=== PATIENT | male | born 1945 | race Caucasian/White ===

== ENCOUNTER 2017-03-07 13:57 | Observation (INO) | payer MEDICARE ==
[2017-03-07 14:33] LABS: BASOPHILS 0.3 % (0-2); EOSINOPHILS 1.5 % (0-7); HEMOGLOBIN 18.5 g/dL (13.5-17.5); IMMATURE GRANULOCYTES 0.2 % (0-5); LYMPHOCYTES 7.3 % (15-50); MCHC 35.6 g/dL (31.0-37.0); MCV 92.7 fL (80.0-100.0); MEAN PLATELET VOLUME 9.9 fL (7.4-10.4); MONOCYTES 10.3 % (2-11); NEUTROPHILS 80.4 % (40-80); PLATELET COUNT 170 10x3/uL (130-400); RBC 5.61 10x6/uL (4.20-6.10); RDW 12.2 % (11.5-14.5); WBC 16.9 10x3/uL (4.8-10.8)
[2017-03-07 14:50] LABS: ALBUMIN 4.8 g/dL (3.4-5.0); ANION GAP 10.4 mmol/L (8-16); BILIRUBIN - TOTAL 1.94 mg/dL (0.2-1.3); CALCIUM 9.8 mg/dL (8.5-10.1); CARBON DIOXIDE 28.2 mmol/L (21.0-32.0); CREATININE - SERUM 1.2 mg/dL (0.6-1.3); POTASSIUM - SERUM 3.6 mmol/L (3.5-5.1); PROTEIN - SERUM 8.4 g/dL (6.4-8.2)
[2017-03-07 15:20] LABS: CREATINE KINASE 344 UL (21-232); MAGNESIUM - SERUM 2.2 mg/dL (1.8-2.4)
[2017-03-07 15:25] LABS: APPEARANCE CLEAR (CLEAR); BILIRUBIN NEGATIVE (NEGATIVE); COLOR YELLOW (YELLOW); GLUCOSE NEGATIVE (NEGATIVE); KETONE NEGATIVE (NEGATIVE); NITRITE NEGATIVE (NEGATIVE); PROTEIN 1+ mg/dL (NEGATIVE); UROBILINOGEN NORMAL (NORMAL)
[2017-03-07 15:27] LABS: BACTERIA FEW /hpf (NONE SEEN); WHITE CELLS - URINE OCC /hpf (0-5)
[2017-03-07 15:30] LABS: TROPONIN-I 0.212 ng/mL (0.000-0.060)
[2017-03-07 15:31] LABS: CKMB 4.6 U/L (0.0-3.6)
--- NOTE | 2017-03-07 17:30 | NUR ---
RECEIVED PT VIA W/C AAOX4 RESP UNLABORED DENIES ANY NEEDS OR DISCOMFORT NAD NOTED AT THIS TIME
[2017-03-07] MEDS ORDERED: LISINOPRIL5 MG PO (17:52)
[2017-03-07] MEDS ORDERED: HUMULIN R100 U/ML SQ (17:54)
[2017-03-07] MEDS ORDERED: TESTOSTERON200 MG/ML IM (17:56)
[2017-03-07] MEDS ORDERED: ANASTROZOLE1 MG PO (17:57)
[2017-03-07 18:37] VITALS: BMI 25.1
--- NOTE | 2017-03-07 19:55 | NUR ---
UPON INITIAL ASSESSMENT, PT STATES THAT HE WANTS TO GO HOME. HE STATES HE SPOKE WITH THE DOCTOR AND THAT HE WANTS TO DO RESEARCH AND POSSIBLY COME BACK AT A LATER DATE. EXPLAINED TO PT THE RISKS, INCLUDING POSSIBLE HEART ATTACK OR . ALSO EXPLAINED TO PT THAT INSURANCE MAY NOT COVER HIS VISIT. PT VERBALIZES STILL WANTING TO LEAVE. CALL TO DR MENDOZA AT THIS TIME.
--- NOTE | 2017-03-07 20:02 | NUR ---
SPOKE WITH DR PAUL PT WANTING TO LEAVE. EXPLAINED TO DR PAUL THAT I SPOKE WITH PT IN GREAT DETAIL THE RISKS INVOLVED. DR PAUL STATES PT WILL BE LEAVING AMA AND TO HAVE HIM SIGN THE AMA FORM AND LET THE PT GO HOME PER PT WISHES.
--- NOTE | 2017-03-07 20:15 | NUR ---
PT SIGNS INFORMED AMA FORM. IV REMOVED WITH CATH TIP INTACT. DRESSING APPLIED. TELEMETRY REMOVED. PT WITH FAMILY MEMBERS X2. ALL BELONGINGS HOME WITH PT. PT LEAVES UNIT AMBULATORY TO PERSONAL AUTO WITH FAMILY MEMBERS.
== END 2017-03-07 20:15 | disposition left against medical advice (07) ==
LOC: D.ER 13:57 → D.M2 16:23 → OBSVTIME 16:23 → D.M2 20:15
PROVIDERS: Emergency Medicine; ADMIT Family Medicine
DX: R55 Syncope and collapse (principal); R79.89 Other specified abnormal findings of blood chemistry; E11.9 Type 2 diabetes mellitus without complications; I10 Essential (primary) hypertension; Z87.891 Personal history of nicotine dependence

== ENCOUNTER 2017-03-12 12:22 | Inpatient (IN) | payer MEDICARE ==
--- NOTE | ~2017-03-12 | HEMODYNAMI ---
PATIENT:SHANTA COLLADO MEDICAL RECORD: [id number] : 45 [facility] [id number] ADMISSION DATE: 03/12/17 Generatedon:03/13/201711:15 Patient name: SHANTA COLLADO Patient #: [id number] SSN: : 1945 Date of study: 03/13/2017 Page: Of Hemodynamic Procedure Report Patient Data Patient Demographics Procedure consent was obtained First Name: SHANTA Gender: Male Last Name: TOBIAS : 1945 [facility] Initial: GAYLE Age: 71 year(s) Patient #: [id number] Race: Unknown Additional ID: [id number] Contact details Address: [address] [place] [address] State: [place] City: [place] Zip code: [address] Past Medical History Allergies: No known allergies Admission Admission Data Admission Date: 03/12/2017 Admission Time: 14:40 Room #: .2117 Height (in.): 70.87 BSA: 1.98 (m2) Height (cm.): 180 BMI: 24.07 (kg/m2) Weight (lbs.): 171.96 Weight (kg.): 78 Lab Results Lab Result Date: 03/13/2017 Lab Result Time: 0:00 Biochemistry Name Units Result Min Max BUN mg/dl 6 -*(----)-- 7 18 Creatinine mg/dl 1.1 --(--*-)-- 0.6 1.3 Troponin l ng/ml 0.219 --(----)-* 0 0.06 CBC Name Units Result Min Max Hemoglobin g/dl 15.8 --(--*-)-- 13.5 17.5 Procedure Procedure Types Cath Procedure Diagnostic Procedure [facility] w/Coronaries Miscellaneous Procedures Moderate Sedation up to 15 minutes Procedure Description Procedure Date Procedure Date: 03/13/2017 Procedure Start Time: 10:55 Procedure End Time: 11:15 Procedure Staff Name Function Srinivas Donato MD Performing Physician Holly Frost RT Scrub Livier Woodall RT Monitor Bartolo Crooks RT Monitor Gutierrez Curiel RN Nurse Procedure Data Cath Procedure Fluoroscopy Diagnostic fluoroscopy Total fluoroscopy Time: 3.3 time: 3.3 min min Diagnostic fluoroscopy Total fluoroscopy dose: 384 dose: 384 mGy mGy Contrast Material Contrast Material Type Amount (ml) Isovue 300 34 Entry Location Entry Primary Successful Side Size Upsize Upsize Entry Closure Succes sful Closure Location (Fr) 1 (Fr) 2 (Fr) Remarks Device Remarks Femoral Right 5 Fr artery Femoral Exoseal artery Estimated blood loss: 10 ml Diagnostic catheters Device Type Used For End Catheter Placement Cordis 5Fr JL 4.0 Procedure Catheter (MP) Cordis 5Fr 3DRC Catheter Procedure (MP) Cordis 5Fr Pigtail Procedure Catheter (MP) Procedure Complications No complications Procedure Medications Medication Administration Route Dosage Oxygen NC 2 l/min Heparin Flush Bag added to field 2 bags (1000units/500ml NS) 0.9% NaCl I.V. 100 ml/hr Radial Cocktail added to field 1 syringe (Verapomil 2mg/Nitro 400mcg/Heparin 1500units) Fentanyl I.V. 50 mcg Versed I.V. 2 mg Hemodynamics Rest BSA: 1.98 (m2) HGB: 15.8 (g/dl) O2 Consumption: Estimated: 216.27 (ml/min) O2 Co nsumption indexed: Estimated:109.23 (ml/min/m) Heart Rate: 53 (bpm) Pressure Samples Time Site Value (mmHg) Purpose Heart Use Rate(bpm) 11:06 LV 142/-2,11 EDP 51 11:07 AO 142/53(83) Pullback 52 11:07 LV 143/8,19 Pullback 52 Gradients Valve Time Site 1 Site 2 Mean SEP/DFP Peak To Heart Use (mmHg) (sec/min) Peak Rate (mmHg) (bpm) Aortic 11:07 LV AO 22 15 1 52 143/8,19 142/53(83) Calculations Valve P-P Mean Valve Index Valve Source Name Gradient Area Flow (cm2) Aortic 1 22 1 22 Snapshots Pre Cath Intra NCS Post Cath Vital Signs Time Heart Resp SPO2 etCO2 HL2kavg NIBP (mmHg) Rhythm Pain Sedation Rate (ipm) (%) (mmHg) (mmHg) Status Level (bpm) 10:46:36 54 19 97 0 0 161/86(140) NSR 0 (11) 10(A) , No pain 10:51:57 52 18 98 0 0 147/76(118) NSR 0 (11) 10(A) , No pain 10:57:11 53 17 100 0 0 139/76(110) NSR 0 (11) 9(A) , No pain 11:01:57 52 18 100 0 0 140/75(112) NSR 0 (11) 9(A) , No pain 11:06:42 52 18 100 0 0 148/74(117) NSR 0 (11) 9(A) , No pain 11:11:57 51 17 100 0 0 148/73(110) NSR 0 (11) 9(A) , No pain Medications Time Medication Route Dose Verified Delivered Reason Notes Eff ectiveness by by 10:49:41 Oxygen NC 2 l/min Srinivas Gutierrez Per Tanmay Curiel RN physician 10:49:56 Heparin Flush added 2 bags Srinivas Gutierrez used for Bag to Tanmay Curiel RN procedure (1000units/500ml field MARIE NS) 10:50:39 0.9% NaCl I.V. 100 Srinivas Gutierrez Per ml/hr Tanmay Curiel RN physician 10:50:52 Radial Cocktail added 1 Srinivas Gutierrez used for (Verapomil to syringe Tanmay Curiel RN procedure 2mg/Nitro field MARIE 400mcg/Heparin 1500units) 10:52:25 Fentanyl I.V. 50 mcg Srinivas Gutierrez for Tanmay Curiel RN sedation 10:52:34 Versed I.V. 2 mg Srinivas Gutierrez for Tanmay Curiel RN sedation Procedure Log Time Note 10:17:33 Gutierrez Curiel RN sent for patient. Start room use. 10:31:07 Patient Height : 70.87 inches 10:31:18 Patient Weight : 171.96 lbs 10:31:57 Lab Result : Hemoglobin 15.8 g/dl 10:31:57 Lab Result : Troponin l 0.219 ng/ml 10:31:57 Lab Result : BUN 6 mg/dl 10:31:57 Lab Result : Creatinine 1.1 mg/dl 10:32:04 Procedure type changed to Cath procedure, Diagnostic procedure, LHC, LHC w/Coronaries, Miscellaneous Procedures, Moderate Sedation up to 15 minutes 10:37:44 Time tracking: Regular hours 10:37:49 Plan of Care:Hemodynamics will remain stable., Cardiac rhythm will remain stable., Comfort level will be maintained., Respiratory function will remain adequate., Patient/ family verbilizes understanding of procedure., Procedure tolerated without complication., Recovers from procedure without complications.. 10:39:53 Patient received from Med II to CCL 1 Alert and oriented. Tansferred to table in Supine position. 10:39:58 Warm blankets applied, and renée hugger turned on for patient comfort. 10:39:59 Correct patient and procedure confirmed by team. 10:40:01 Signed procedure consent form obtained from patient. 10:40:02 ECG and BP/O2 sat monitors applied to patient. 10:45:02 Vital chart was started 10:45:10 Baseline sample Acquired. 10:45:48 Rhythm: sinus rhythm 10:45:50 Full Disclosure recording started 10:46:13 H&P Date Dictated: 03/12/2017 Greater than 30 days; new H&P dictated by physician. Or brief H&P completed., Emergent; H&P N/A, Within 30 days and on chart., H&P Addendum completed by physician on day of procedure. (MUST COMPLETE FOR ALL OUTPATIENTS), ER History on chart., New H&P dictated by physician.. 10:46:14 Pre-procedure instructions explained to patient. 10:46:16 Pre-op teaching completed and patient verbalized understanding. 10:46:19 Family in waiting room. 10:46:21 Patient NPO since Midnight. 10:46:33 Patient allergic to No known allergies 10:46:37 Is the patient allergic to Iodine/contrast media? No. 10:46:47 Is patient on blood thinner?Yes 10:47:07 ACC The patient was administered the following blood thiners within the last 24 hours: ACCPlavix 10:47:49 Patient diabetic? Yes. 10:47:51 If diabetic: On Metformin? No 10:47:58 Snore? Yes 10:48:01 Previous problem with sedation/anesthesia? No ? 10:48:05 Sleep apnea? No 10:48:07 Deviated septum? No 10:48:08 Opens mouth fully? Yes 10:48:09 Sticks out tongue? Yes 10:48:12 Airway obstruction? No ? 10:48:16 Dentures? No ? 10:48:54 Pre procedure: right dorsailis pedis pulse 2+ Normal; easily identifiable; not easily obliterated 10:49:15 Patient pain scale 1/10 ?. 10:49:26 IV patent on arrival in left forearm with 0.9% NaCl at O. 10:49:41 Oxygen 2 l/min NC was administered by Gutierrez Curiel RN; Per physician; 10:49:41 Lab results completed and on chart. 10:49:56 Heparin Flush Bag (1000units/500ml NS) 2 bags added to field was administered by Gutierrez Curiel RN; used for procedure; 10:50:04 Right groin area was prepped with chlora-prep and draped in sterile fashion 10:50:13 Alarms reviewed by R. N. 10:50:15 Sharps counted by scrub and verified by R.N. 10:50:39 0.9% NaCl 100 ml/hr I.V. was administered by Gutierrez Curiel RN; Per physician; 10:50:52 Radial Cocktail (Verapomil 2mg/Nitro 400mcg/Heparin 1500units) 1 syringe added to field was administered by Gutierrez Curiel RN; used for procedure; 10:50:58 Physician arrived 10:51:40 --------ALL STOP TIME OUT------ 10:51:41 Final Timeout: patient, procedure, and site verified with staff and physician. All members of the team are in agreement. 10:51:44 Right groin site verified by team. 10:51:49 Physical assessment completed. ASA score P 2 - A patient with mild systemic disease as per Srinivas Donato MD. 10:51:53 Sedation plan: IV Moderate Sedation Versed, Fentanyl 10:52:25 Fentanyl 50 mcg I.V. was administered by Gutierrez Curiel RN; for sedation; 10:52:33 Use device set Femoral Dx 10:52:34 Versed 2 mg I.V. was administered by Gutierrez Curiel RN; for sedation; 10:52:36 Tegaderm 4 x 4 opened to sterile field. 10:52:37 Acist Syringe opened to sterile field. 10:52:38 Bag Decanter opened to sterile field. 10:52:40 Medline Cath Pack opened to sterile field. 10:52:45 Acist Hand Control opened to sterile field. 10:52:45 Acist Manifold opened to sterile field. 10:52:48 Terumo 5Fr [place] Sheath opened to sterile field. 10:52:49 St Tom 260cm J .035 wire opened to sterile field. 10:52:51 Diagnostic Infinity 5Fr Multipack catheter opened to sterile field. 10:54:58 Procedure started. 10:55:14 Local anesthetic to right femoral artery with Lidocaine 2% by Srinivas Donato MD.INITIAL ACCESS ONLY 10:57:28 Zero performed for pressure channel P1 10:57:53 A 5 Fr sheath was inserted into the Right Femoral artery 10:59:48 A Cordis 5Fr JL 4.0 Catheter (MP) was advanced over the wire and used for Procedure. 11:02:09 LCA angiography performed. 11:02:16 Catheter removed. 11:02:53 A Cordis 5Fr 3DRC Catheter (MP) was advanced over the wire and used for Procedure. 11:03:47 RCA angiography performed. 11:04:39 Catheter exchanged over wire. 11:04:46 A Cordis 5Fr Pigtail Catheter (MP) was advanced over the wire and used for Procedure. 11:08:03 LV gram done using HUANG 11:08:16 EF : 45 % 11:08:32 Catheter removed. 11:09:21 A sheath was inserted into the Femoral artery 11:09:21 Sheath removed intact; hemostasis achieved with Exoseal to the Femoral artery. 11:09:45 Procedure ended.(Physican Out) 11:10:06 Fluoroscopy time 03.30 minutes. 11:10:12 Fluoroscopy dose: 384 mGy 11:10:12 Flurop Dose total: 384 11:10:37 Contrast amount:Isovue 300 34ml. 11:10:38 Sharps counted by scrub and verified by R.N. 11:10:41 Insertion/operative site no bleeding no hematoma. 11:10:49 Post-op/insertion site Left Femoral artery dressed using a 4 x 4 and Tegaderm. 11:10:57 Post Procedure Pulses reassessed and unchanged 11:11:04 Post procedure: right dorsailis pedis pulse 2+ Normal; easily identifiable; not easily obliterated. 11:11:08 Post-procedure physical assessment completed. ASA score P 2 - A patient with mild systemic disease as per Srinivas Donato MD. 11:11:13 Post procedure rhythm: unchanged. 11:11:16 Estimated blood loss: 10 ml 11:11:18 Post procedure instruction explained to patient.Patient verbalizes understanding. 11:11:18 Patient needs reinforcement of post procedure teaching. 11:13:07 Cook 4Fr Micropuncture Set ([id number]) opened to sterile field. 11:13:12 Cordis 5Fr Exoseal opened to sterile field. 11:13:59 Procedure and supply charges have been captured, reviewed, submitted and are correct. 11:14:06 Procedure Complication : No complications 11:14:51 Vital chart was stopped 11:14:52 See physician's report for complete and final results. 11:14:56 Report given to Med II. 11:14:59 Patient transfered to Med II with Stretcher. 11:15:02 Procedure ended. 11:15:02 Full Disclosure recording stopped 11:15:23 End room use (Document Last) Device Usage Item Name Manufacture Quantity Catalog Hospital Part Current Minimal Lot# / Number Charge Number Stock Stock Serial# Code Tegaderm 4 x 3M 1 [id number] [id number] 728318 700848 5 4 Acist Syringe Acist 1 26373 430742 667136 027849 20 [employer] Bag Decanter Microtek 1 2002S 058558 67059 444968 5 [employer] Inc[employer] Medline Cath Cardinal 1 [id number] 830350 24281 348761 5 Pack Health Acist Hand Acist 1 65549 357209 173610 100000 5 Control [employer] Inc Acist Acist 1 69987 719122 719599 322736 5 Manifold [employer] Inc Terumo 5Fr Terumo 1 [id number] 764922 321205 910290 [address] [place] [address] Tom [address] St Tom 1 517201 942568 097158 943342 30 J .035 wire Diagnostic Cardinal 1 [id number] 196873 59103 612645 30 Infinity 5Fr Health Multipack catheter Cordis 5Fr JL Cardinal 1 [id number] 5 4.0 Catheter Health (MP) Cordis 5Fr Cardinal 1 [id number] 5 3DRC Catheter Health (MP) Cordis 5Fr Cardinal 1 [id number] 5 Pigtail Health Catheter (MP) Cook 4Fr [facility] 1 [id number] 165103 787059 785306 5 Micropuncture Set ([id number]) Cordis 5Fr Cardinal 1 EX500 513842 233444 648586 10 Exoseal Health Signature Audit [place] Stage Time Signature Unsigned Intra-Procedure 03/13/2017 Livier Woodall 11:15:52 AM RT(R) Signatures Monitor : Livier Woodall Signature : RT Date : Time : Monitor : Bartolo Crooks RT Signature : Date : Time : [address] [address]
--- NOTE | ~2017-03-12 | HEMODYNAMI ---
PATIENT:SHANTA COLLADO MEDICAL RECORD: [id number] : 45 [facility] [id number] ADMISSION DATE: 03/13/17 Generatedon:03/14/201713:48 Patient name: SHANTA COLLADO Patient #: [id number] SSN: : 1945 Date of study: 03/14/2017 Page: Of Hemodynamic Procedure Report Patient Data Patient Demographics Procedure consent was obtained First Name: SHANTA Gender: Male Last Name: TOBIAS : 1945 [facility] Initial: GAYLE Age: 71 year(s) Patient #: [id number] Race: Unknown Additional ID: [id number] Contact details Address: [address] [place] [address] State: [place] City: [place] Zip code: [address] Past Medical History Allergies: No known allergies Admission Admission Data Admission Date: 03/13/2017 Admission Time: 14:58 Room #: D.2117 Height (in.): 70.87 BSA: 1.98 (m2) Height (cm.): 180 BMI: 24.07 (kg/m2) Weight (lbs.): 171.96 Weight (kg.): 78 Lab Results Lab Result Date: 03/13/2017 Lab Result Time: 0:00 Biochemistry Name Units Result Min Max BUN mg/dl 6 -*(----)-- 7 18 Creatinine mg/dl 1.1 --(--*-)-- 0.6 1.3 Troponin l ng/ml 0.219 --(----)-* 0 0.06 CBC Name Units Result Min Max Hemoglobin g/dl 15.8 --(--*-)-- 13.5 17.5 Procedure Procedure Types Cath Procedure PCI Procedure Coronary Stent Initial Procedure Description Procedure Date Procedure Date: 03/14/2017 Procedure Start Time: 13:35 Procedure End Time: 13:48 Procedure Staff Name Function Dagoberto Long MD Performing Physician Jarret Saleem RT Scrub Gutierrez Curiel RN Nurse Bella Fung RT Monitor Rakan Linton RT Monitor Procedure Data Cath Procedure Fluoroscopy Diagnostic fluoroscopy Total fluoroscopy Time: 1.8 time: 1.8 min min Diagnostic fluoroscopy Total fluoroscopy dose: 244 dose: 244 mGy mGy Contrast Material Contrast Material Type Amount (ml) Isovue 300 42 Entry Location Entry Primary Successful Side Size Upsize Upsize Entry Closure Ochoa ccessful Closure Location (Fr) 1 (Fr) 2 (Fr) Remarks Device Remarks Radial Right 6 Fr Mechanical artery Short Compression Estimated blood loss: 10 ml Procedure Medications Medication Administration Route Dosage Oxygen NC 2 l/min Heparin Flush Bag added to field 2 bags (1000units/500ml NS) 0.9% NaCl I.V. 100 ml/hr Radial Cocktail added to field 1 syringe (Verapomil 2mg/Nitro 400mcg/Heparin 1500units) Fentanyl I.V. 50 mcg Versed I.V. 1 mg Fentanyl I.V. 50 mcg Versed I.V. 1 mg Radial Cocktail I.A. 1 syringe (Verapomil 2mg/Nitro 400mcg/Heparin 1500units) Heparin Bolus I.V. 4000 units Fentanyl I.V. 50 mcg Hemodynamics Rest BSA: 1.98 (m2) HGB: 15.8 (g/dl) O2 Consumption: Estimated: 217.09 (ml/min) O2 Co nsumption indexed: Estimated:109.64 (ml/min/m) Heart Rate: 54 (bpm) Snapshots Pre Cath Intra NCS Post Cath Vital Signs Time Heart Resp SPO2 NIBP (mmHg) Rhythm Pain Sedation Rate (ipm) (%) Status Level (bpm) 13:16:37 54 17 99 154/82(140) NSR 0 (11) 10(A) , No pain 13:20:57 53 17 96 152/82(126) NSR 0 (11) 10(A) , No pain 13:25:17 49 16 98 144/80(120) NSR 0 (11) 10(A) , No pain 13:29:34 48 19 98 148/81(125) NSR 0 (11) 10(A) , No pain 13:33:45 50 18 98 151/81(120) NSR 0 (11) 10(A) , No pain 13:38:04 60 18 97 112/61(84) NSR 0 (11) 9(A) , No pain 13:42:11 65 18 94 118/66(91) NSR 0 (11) 9(A) , No pain 13:44:57 53 18 95 123/65(83) NSR 0 (11) 9(A) , No pain Medications Time Medication Route Dose Verified Delivered Reason Note s Effectiveness by by 13:20:14 Oxygen NC 2 l/min Dagoberto Whitley Per physician Mercedes Curiel RN 13:20:23 Heparin Flush added 2 bags Dagoberto Whitley used for Bag to Mercedes Curiel RN procedure (1000units/500ml field NS) 13:20:34 0.9% NaCl I.V. 100 Dagoberto Whitley Per physician ml/hr Mercedes Curiel RN 13:20:46 Radial Cocktail added 1 Dagoberto Whitley used for (Verapomil to syringe Mercedes Curiel RN procedure 2mg/Nitro field 400mcg/Heparin 1500units) 13:34:56 Fentanyl I.V. 50 mcg Dagoberto Whitley for sedation Mercedes Curiel RN 13:35:05 Versed I.V. 1 mg Dagoberto Whitley for sedation Mercedes Curiel RN 13:36:02 Fentanyl I.V. 50 mcg Dagoberto Whitley for sedation Mercedes Curiel RN 13:36:08 Versed I.V. 1 mg Dagoberto Whitley for sedation Mercedes Curiel RN 13:36:57 Radial Cocktail I.A. 1 Dagoberto Arenas for (Verapomil syringe Mercedes Long MD vasodilation 2mg/Nitro 400mcg/Heparin 1500units) 13:37:07 Heparin Bolus I.V. 4000 Dagoberto Whitley for units Mercedes Curiel RN anticoagulation 13:40:31 Fentanyl I.V. 50 mcg Dagoberto Whitley for sedation Mercedes Curiel RN Procedure Log Time Note 12:12:05 Time tracking: Regular hours 12:12:09 Plan of Care:Hemodynamics will remain stable., Cardiac rhythm will remain stable., Comfort level will be maintained., Respiratory function will remain adequate., Patient/ family verbilizes understanding of procedure., Procedure tolerated without complication., Recovers from procedure without complications.. 12:12:15 Use device set Femoral PCI 12:12:16 Acist Syringe opened to sterile field. 12:12:17 Acist Hand Control opened to sterile field. 12:12:17 Bag Decanter opened to sterile field. 12:12:18 Medline Cath Pack opened to sterile field. 12:12:18 Terumo 6Fr [place] Sheath opened to sterile field. 12:12:18 St Tom 260cm J .035 wire opened to sterile field. 12:12:19 Acist Manifold opened to sterile field. 12:12:20 Tegaderm 4 x 4 opened to sterile field. 12:56:14 Gutierrez Curiel RN sent for patient. Start room use. 13:12:45 Patient received from PCU to CCL 2 Alert and oriented. Tansferred to table in Supine position. 13:12:48 Warm blankets applied, and renée hugger turned on for patient comfort. 13:12:50 Correct patient and procedure confirmed by team. 13:12:53 Signed procedure consent form obtained from patient. 13:13:44 ECG and BP/O2 sat monitors applied to patient. 13:13:45 Vital chart was started 13:13:47 Baseline sample Acquired. 13:14:23 Baseline sample Acquired. 13:14:48 RBBB 13:14:48 Rhythm: sinus rhythm 13:14:51 Full Disclosure recording started 13:15:10 H&P Date Dictated: 03/12/2017 Within 30 days and on chart.. 13:15:16 Family unavailable. 13:15:22 Patient NPO since Breakfast. 13:15:33 Patient allergic to No known allergies 13:15:43 Is the patient allergic to Iodine/contrast media? No. 13:15:46 Is patient on blood thinner?Yes 13:15:50 ACC The patient was administered the following blood thiners within the last 24 hours: ACCPlavix 13:16:03 Patient diabetic? Yes. 13:16:23 If diabetic: On Metformin? No 13:16:38 INSULIN DEPENDANT 13:16:43 ----Pre-sedation anethsthesia assessment.---- 13:16:54 Previous problem with sedation/anesthesia? No ? 13:16:57 Snore? Yes 13:16:59 Sleep apnea? No 13:17:01 Deviated septum? No 13:17:02 Opens mouth fully? Yes 13:17:04 Sticks out tongue? Yes 13:17:06 Airway obstruction? No ? 13:17:17 Modified Ruben's test Ulnar < 7 seconds 13:20:14 Oxygen 2 l/min NC was administered by Gutierrez Curiel RN; Per physician; 13:20:23 Heparin Flush Bag (1000units/500ml NS) 2 bags added to field was administered by Gutierrez Curiel RN; used for procedure; 13:20:34 0.9% NaCl 100 ml/hr I.V. was administered by Gutierrez Curiel RN; Per physician; 13:20:46 Radial Cocktail (Verapomil 2mg/Nitro 400mcg/Heparin 1500units) 1 syringe added to field was administered by Gutierrez Curiel RN; used for procedure; 13:22:03 Patient pain scale 0/10 ?. 13:22:22 IV patent on arrival in left wrist with 0.9% NaCl at [facility]. 13:23:16 Lab results completed and on chart. 13:23:29 Right Radial & Left Groin area was prepped with chlora-prep and draped in sterile fashion 13:23:31 Alarms reviewed by R. N. 13:23:32 Sharps counted by scrub and verified by R.N. 13:32:17 MBrace Wrist Support opened to sterile field. 13:32:51 Medtronic Launcher 6Fr AR 2.0 SH guide catheter opened to sterile field. 13:32:53 Chi Whisper J 300cm 0.014 guide wire opened to sterile field. 13:32:54 addwish BasixCompak Inflation Kit opened to sterile field. 13:34:23 Physician arrived 13:34:23 --------ALL STOP TIME OUT------ 13:34:24 Final Timeout: patient, procedure, and site verified with staff and physician. All members of the team are in agreement. 13:34:27 Right Radial & Left Groin site verified by team. 13:34:30 Physical assessment completed. ASA score P 2 - A patient with mild systemic disease as per Dagoberto Long MD. 13:34:34 Sedation plan: IV Moderate Sedation Versed, Fentanyl 13:34:56 Fentanyl 50 mcg I.V. was administered by Gutierrez Curiel RN; for sedation; 13:35:04 Procedure started. 13:35:05 Versed 1 mg I.V. was administered by Gutierrez Curiel RN; for sedation; 13:35:31 Bella Fung RT(R) was relieved by Rakan Linton RT(R) (CV) as monitoring person 13:35:42 Local anesthetic to right radial artery with Lidocaine 2% by Dagoberto Long MD.INITIAL ACCESS ONLY 13:36:02 Fentanyl 50 mcg I.V. was administered by Gutierrez Curiel RN; for sedation; 13:36:08 Versed 1 mg I.V. was administered by Gutierrez Curiel RN; for sedation; 13:36:28 A 6 Fr Short sheath was inserted into the Right Radial artery 13:36:49 PCI Cath status Elective 13:36:57 Radial Cocktail (Verapomil 2mg/Nitro 400mcg/Heparin 1500units) 1 syringe I.A. was administered by Dagoberto Long MD; for vasodilation; 13:37:02 6 Fr AR 2 SH guide catheter was inserted over the wire 13:37:07 Heparin Bolus 4000 units I.V. was administered by Gutierrez Curiel RN; for anticoagulation; 13:37:46 Zero performed for pressure channel P1 13:37:50 Zero performed for pressure channel P1 13:37:52 Zero performed for pressure channel P1 13:40:31 Fentanyl 50 mcg I.V. was administered by Gutierrez Curiel RN; for sedation; 13:40:31 WHISPER wire advanced. 13:41:00 Wire advanced across lesion. 13:41:30 Inflation Number: 1 A Mauricio OTW 2.5 x 15 stent was prepped and advanced across the Prox RCA. The stent was deployed at 17 JEAN CARLOS for 0:10 (min:sec). 13:41:35 Stent catheter was removed intact over wire. 13:41:37 Wire removed. 13:41:37 Guide catheter removed. 13:41:50 Terumo TR Band Standard opened to sterile field. 13:43:54 Sheath removed intact; hemostasis achieved with Mechanical Compression to the Right Radial artery. 13:43:58 Procedure ended.(Physican Out) 13:44:15 Fluoroscopy time 01.80 minutes. 13:44:21 Flurop Dose total: 244 13:44:21 Fluoroscopy dose: 244 mGy 13:44:33 Contrast amount:Isovue 300 42ml. 13:44:34 Sharps counted by scrub and verified by R.N. 13:44:48 TR band inflated with 10cc of air. 13:44:50 Insertion/operative site no bleeding no hematoma. 13:45:07 Post right radial artery:stable 13:45:17 Post-procedure physical assessment completed. ASA score P 2 - A patient with mild systemic disease as per Dagoberto Long MD. 13:46:40 Post procedure rhythm: unchanged. 13:47:45 Estimated blood loss: 10 ml 13:47:47 Post procedure instruction explained to patient.Patient verbalizes understanding. 13:47:50 Patient needs reinforcement of post procedure teaching. 13:47:51 Procedure and supply charges have been captured, reviewed, submitted and are correct. 13:47:53 Vital chart was stopped 13:47:55 See physician's report for complete and final results. 13:47:57 Report given to PCU. 13:48:01 Patient transfered to PCU with Bed. 13:48:03 Procedure ended. 13:48:03 Full Disclosure recording stopped 13:48:10 End room use (Document Last) Intervention Summary Intervention Notes Time ActionType Lesion and Equipment Action# Pressure Duration Attributes Used 13:41:30 Place stent Prox RCA [place] OTW 1 17 00:10 2.5 x 15 stent Device Usage Item Name Manufacture Quantity Catalog Hospital Part Current Minimal Lot# / Number Charge Number Stock Stock Serial# Code Acist Acist 1 19744 [id number] 648590 461575 20 Syringe Medical Systems Inc Acist Hand Acist 1 11540 529131 032902 139990 5 Control Medical Systems Inc Bag Microtek 1 2002S 358107 74756 514889 5 Cheggin Inc. Medline Cardinal 1 [id number] 386225 64096 656209 5 Veggie Grill Terumo 6Fr Terumo 1 [id number] 202055 076599 959680 [address] [place] Tom 1 161516 629494 638357 606072 30 260cm J .035 wire Acist Acist 1 09834 719617 909498 820537 5 Manifold Medical Systems Inc Tegaderm 4 3M 1 1626W 181031 693943 390119 5 x 4 MBrace Advanced 1 140-0250-00 421205 36738 964948 5 Wrist Vascular Support Dynamics Medtronic Medtronic 1 [id number] 865030 19328 166733 1 Launcher 6Fr AR 2.0 SH guide catheter Chi Chi 1 [id number] 989796 170154 913733 5 Valerieisdebbi J Vascular 300cm 0.014 guide wire [facility] 1 [id number] 595197 258685 715771 15 [facility] Medical Inflation Kit Mauricio OTW Medtronic 1 [id number] 050963 50038 780473 5 [id number] 2.5 x 15 stent Terumo TR Terumo 1 [id number] 155529 764147 907944 40 Band Standard Signature Audit [place] Stage Time Signature Unsigned Intra-Procedure 03/14/2017 Rakan Linton 1:48:51 PM RT(R) (CV) Signatures Monitor : Bella Signature : Counts RT Date : Time : Monitor : Rakan Linton RT Signature : Date : Time : [place] [address] [place] [address]
[~2017-03-12 12:22] MED LIST: ANASTROZOLE1 MG PO; HUMULIN R100 U/ML SQ; LISINOPRIL5 MG PO; TESTOSTERON200 MG/ML IM
[2017-03-12 13:03] LABS: EOSINOPHILS 3.7 % (0-7); HEMATOCRIT 44.7 % (42.0-54.0); HEMOGLOBIN 15.8 g/dL (13.5-17.5); IMMATURE GRANULOCYTES 0.2 % (0-5); LYMPHOCYTES 22.7 % (15-50); MCH 32.4 pg (26.0-34.0); MCHC 35.3 g/dL (31.0-37.0); MCV 91.6 fL (80.0-100.0); MEAN PLATELET VOLUME 9.4 fL (7.4-10.4); MONOCYTES 14.1 % (2-11); NEUTROPHILS 58.3 % (40-80); PLATELET COUNT 156 10x3/uL (130-400); RBC 4.88 10x6/uL (4.20-6.10); WBC 5.7 10x3/uL (4.8-10.8)
[2017-03-12 13:23] LABS: ALKALINE PHOSPHATASE 69 U/L (46-116); ALT (SGPT) 42 U/L (10-68); BILIRUBIN - TOTAL 1.01 mg/dL (0.2-1.3); CALC OSMOLALITY 265 mosm/kg (275-300); CALCIUM 9.2 mg/dL (8.5-10.1); CARBON DIOXIDE 28.3 mmol/L (21.0-32.0); CHLORIDE - SERUM 99 mmol/L (98-107); CREATININE - SERUM 1.1 mg/dL (0.6-1.3); GLUCOSE 101 mg/dL (74-106); POTASSIUM - SERUM 3.7 mmol/L (3.5-5.1); SODIUM 134 mmol/L (136-145); UREA NITROGEN 6 mg/dL (7-18); eGFR NON AFRICAN AMERICAN 70 mL/min (90-120)
[2017-03-12 13:38] LABS: CHOLESTEROL, TOTAL 160 mg/dL (0-200); CKMB 4.6 U/L (0.0-3.6); CREATINE KINASE 378 UL (21-232); HDL CHOLESTEROL 40 mg/dL (32-96); LDL CHOLESTEROL 109 mg/dL (0-100); LDL-HDL RATIO 2.7 ratio (1.5-3.5); TRIGLYCERIDE 57 mg/dL (30-200)
[2017-03-12 13:46] LABS: TROPONIN-I 0.162 ng/mL (0.000-0.060)
--- NOTE | 2017-03-12 16:20 | NUR ---
TRANSFER FROM ER BY W/C. MKINTED TO ROOM. CALL LIGHT IN REACH. WILL CONT. PLAN OF CARE.
[2017-03-12 16:29] VITALS: BP 145/69; BMI 24.0
--- NOTE | 2017-03-12 17:14 | NUR ---
CONSENTS SIGNED FOR [facility].
--- NOTE | 2017-03-12 19:36 | NUR ---
ASSESSMENT COMPLETE, A&O. RESPERATIONS EVEN ON RA. IV TO LEFT HAND WITH NS AT 50 CC/HR. SITE CLEAN AND DRY. REMINDED PT OF NOTHING TO EAT OR DRINK AFTER MN DUE TO PT HAVING HEART CATH IN AM. PT STATED UNDERSTANDING. SNACK PROVIDED AT PT REQUEST. WILL CONT TO MONITOR.
[2017-03-12 20:00] VITALS: BP 129/62
--- NOTE | 2017-03-12 20:59 | NUR ---
CUP OF CHICKEN NOODLE SOUP GIVEN AT PT REQUEST.
--- NOTE | 2017-03-12 23:58 | NUR ---
RESTING WITH EYES CLOSED, RESPERATIONS EVEN, NO S/S DISTRESS NOTED
--- NOTE | 2017-03-13 01:57 | NUR ---
LYING IN BED WITH EYES CLOSED, CALL LIGHT IN REACH. WILL CONTINUE WITH PLAN OF CARE.
[2017-03-13 04:00] VITALS: BP 119/59
[2017-03-13 07:10] LABS: BASOPHILS 0.8 % (0-2); EOSINOPHILS 10.8 % (0-7); HEMATOCRIT 43.5 % (42.0-54.0); HEMOGLOBIN 14.9 g/dL (13.5-17.5); IMMATURE GRANULOCYTES 0.4 % (0-5); LYMPHOCYTES 27.6 % (15-50); MCHC 34.3 g/dL (31.0-37.0); MCV 93.3 fL (80.0-100.0); MONOCYTES 14.6 % (2-11); NEUTROPHILS 45.8 % (40-80); PLATELET COUNT 165 10x3/uL (130-400); RBC 4.66 10x6/uL (4.20-6.10); RDW 12.2 % (11.5-14.5); WBC 5.2 10x3/uL (4.8-10.8)
[2017-03-13 07:17] LABS: ANION GAP 11.2 mmol/L (8-16); CALCIUM 8.8 mg/dL (8.5-10.1); CREATININE - SERUM 1.1 mg/dL (0.6-1.3); POTASSIUM - SERUM 4.2 mmol/L (3.5-5.1)
[2017-03-13 07:42] VITALS: BP 143/59
[2017-03-13 10:11] VITALS: BMI 28.8
--- NOTE | 2017-03-13 10:35 | NUR ---
PRE-OPS GIVEN. TO FLYING INSTRUCTOR BY BED.
--- NOTE | 2017-03-13 11:37 | NUR ---
BACK FROM INSPECTOR RAW QUARTZ. VS WNL. RIGHT GROIN STABLE WITHOUT BLEEDING OR HEMATOMA NOTED. WILL MONITOR.
--- NOTE | 2017-03-13 13:31 | NUR ---
BED REST UP. GROIN STABLE.
[2017-03-13 15:37] VITALS: BP 128/59
--- NOTE | 2017-03-13 19:34 | NUR ---
RESUMED CARE OF PT, LYING IN BED RESPIRATIONS EVEN AND UNLABORED ON ROOM AIR. LEFT HAND SALINE LOCKED. 56 SB ON TELEMETRY. PLAN OF CARE DISCUSSED. CALL LIGHT IN REACH. WILL CONTINUE TO MONITOR. SEE NURSE ASSESSMENT.
[2017-03-13 20:19] VITALS: BP 111/54
--- NOTE | 2017-03-14 03:41 | NUR ---
CALL LIGHT IN REACH, WILL CONTINUE WITH PLAN OF CARE.
[2017-03-14 04:44] VITALS: BP 151/62
--- NOTE | 2017-03-14 05:16 | NUR ---
PT STATES, HE HAS THOUGHT ABOUT HIS OPTIONS TO HAVE A CABG OR TRY STENTING. STATES HE'D LIKE TO TRY FOR THE STENTS WITH DR. RODRIGUEZ. HE HAS LEFT HIMSELF NPO SINCE 0 LAST NIGHT. WILL CONTINUE TO MONITOR.
[2017-03-14 07:10] LABS: PLT FUNCT.(P2Y12) PLAVIX 87 PRU (194-418)
[2017-03-14 08:46] VITALS: BP 127/65
[2017-03-14 09:16] LABS: HEPATITIS C ANTIBODY <0.1 (0.0-0.9)
--- NOTE | 2017-03-14 10:44 | NUR ---
CONSENTS SIGNED FOR [facility] BY DR. RODRIGUEZ.
[2017-03-14 11:03] LABS: BASOPHILS 0.9 % (0-2); EOSINOPHILS 6.7 % (0-7); HEMATOCRIT 45.2 % (42.0-54.0); HEMOGLOBIN 15.5 g/dL (13.5-17.5); IMMATURE GRANULOCYTES 0.2 % (0-5); LYMPHOCYTES 18.1 % (15-50); MCH 32.2 pg (26.0-34.0); MCHC 34.3 g/dL (31.0-37.0); MCV 93.8 fL (80.0-100.0); MEAN PLATELET VOLUME 9.9 fL (7.4-10.4); MONOCYTES 14.7 % (2-11); NEUTROPHILS 59.4 % (40-80); PLATELET COUNT 166 10x3/uL (130-400); RBC 4.82 10x6/uL (4.20-6.10); RDW 12.1 % (11.5-14.5); WBC 5.9 10x3/uL (4.8-10.8)
[2017-03-14 11:12] LABS: CALC OSMOLALITY 279 mosm/kg (275-300); CALCIUM 9.1 mg/dL (8.5-10.1); CARBON DIOXIDE 28.4 mmol/L (21.0-32.0); CHLORIDE - SERUM 103 mmol/L (98-107); GLUCOSE 96 mg/dL (74-106); POTASSIUM - SERUM 3.8 mmol/L (3.5-5.1); SODIUM 140 mmol/L (136-145); eGFR NON AFRICAN AMERICAN 78 mL/min (90-120)
[2017-03-14 11:15] LABS: UREA NITROGEN 15 mg/dL (7-18)
[2017-03-14 12:12] VITALS: BP 134/69
--- NOTE | 2017-03-14 13:00 | NUR ---
PRE-OPS GIVEN. TO RECOVERY MANAGER BY BED.
--- NOTE | 2017-03-14 14:07 | NUR ---
BACK FROM SEWAGE RETICULATION DRAFTING OFFICER. VS WNL. RIGHT WRIST STABLE WITH TR BAND INTACT. WILL MONITOR.
[2017-03-14 15:34] VITALS: BP 97/53
--- NOTE | 2017-03-14 15:58 | NUR ---
Patient Name: SHANTA COLLADO Admission Status: ER Accout number: [id number] Admission Date: 03-13-2017 : 1945 Admission Diagnosis: Attending: MARGOT SHARMA Current LOS: 1 Anticipated DC Date: 03-14-2017 Planned Disposition: Home Primary Insurance: MEDICARE A & B Discharge Planning Comments: * Is the patient Alert and Oriented? Yes 0 * How many steps to enter\exit or inside your home? 3-4 0 * PCP DR. CHRISTIANSON 0 * Pharmacy [facility] 0 * Preadmission Environment Home with Family 0 * ADLs Independent 0 * Equipment None 0 * Other Equipment NO MEDICAL EQUIPMENT PROVIDER PREFERENCE 0 * List name and contact numbers for known caregivers / representatives who currently or will assist patient after discharge: RAUL ANDRADE, SON, [phone] 0 * Community resources currently utilized None 0 * Please name any agencies selected above. NONE 0 * Additional services required to return to the preadmission environment? No * Can the patient safely return to the preadmission environment? Yes 0 * Has this patient been hospitalized within the prior 30 days at any hospital? No 0 CM MET WITH PT IN ROOM TO DISCUSS DISCHARGE PLANNING AND NEEDS. PT REPORTS LIVING AT HOME INDEPENDENTLY WITH HIS . PT HAS NO MEDICAL EQUIPMENT AND NO OUTSIDE SERVICES ASSISTING IN THE HOME. CM DISCUSSED AVAILABILITY OF HOME HEALTH, REHAB SERVICES AND MEDICAL EQUIPMENT. PT DENIES DISCHARGE NEEDS, REPORTS HIS SON WILL PICK HIM UP FOR DISCHARGE HOME. [employer] Crm Developer: Hussain Pimentel
[2017-03-14] MEDS ORDERED: PLAVIX75 MG PO (16:13)
[2017-03-14] MEDS ORDERED: ASPIRIN81 MG PO (16:14)
--- NOTE | 2017-03-14 17:46 | NUR ---
TR BAND DCD WITHOUT BLEEDING OR HEMATOMA NOTED.
--- NOTE | 2017-03-14 18:05 | NUR ---
IV AND TELEMETRY DCD. DC PLANS GIVEN. UNDERSTANDING VOICED.
--- NOTE | 2017-04-04 16:56 | DS ---
PATIENT:SHANTA COLLADO :[birth year] MEDICAL RECORD: [id number] DISCHARGE SUMMARY ADMISSION DATE: 03/13/17 DISCHARGE DATE: 03/14/17 DATE OF SERVICE: 03/14/2017 DISCHARGE DIAGNOSES: 1. Unstable angina. 2. Coronary artery disease. 3. Percutaneous transluminal coronary angioplasty stent of the right coronary artery, this admission. HOSPITAL COURSE: This is a gentleman who presents with anginal symptomatology, found to have severe 3-vessel coronary artery disease, total occlusion of his LAD with well-developed collaterals of the right, significant stenosis of the RCA and left circumflex initially consulted for bypass surgery; however, the patient did not want bypass surgery, Dr. Meadows asked me to review the films for transcatheter revascularization. Since the LAD is so well collateralized, we fixed the right. Discharged home with the addition of aspirin and Plavix to his medical regimen. We will bring him back next week for PTCA stent of the left circumflex. TRANSINT:[id number] Voice Confirmation ID: [id number] DOCUMENT ID: [id number] VIKTOR RODRIGUEZ MD at 1656 CC: [id number] DICTATION DATE: 03/14/17 1345 ART INSTRUCTOR: 03/14/17 2116 DIS IN 03/14/17 [facility] [address] [place] [address]
--- NOTE | 2017-04-04 16:56 | OP ---
PATIENT NAME: SHANTA COLLADO MEDICAL RECORD: [id number] :45 LOCATION:D.M2 D.2117 ADMISSION DATE:03/13/17 SURGEON: VIKTOR RODRIGUEZ MD DATE OF OPERATION: 03/14/2017 PROCEDURES: 1. PTCA and stent to RCA. 2. Selective coronary angiography. INDICATION: Angina and coronary artery disease. PROCEDURE IN DETAIL: After informed consent was obtained and after detailed explanation of risks, benefits as well as alternative therapies, the patient elected to proceed with angiogram and angioplasty. The right radial area was prepped and draped in normal sterile fashion. The right radial artery was cannulated via modified Seldinger technique with placement of 6-Faroese sheath. All catheters exchanged through this sheath. FINDINGS: The right coronary has an 80% stenosis in the mid vessel. This was addressed with a 2.5 x 15-mm Mauricio stent. Result was 0% residual stenosis. OVERALL IMPRESSION: Successful PTCA and stent of the RCA going from 80% initial stenosis to 0% residual stenosis. TRANSINT:[id number] Voice Confirmation ID: [id number] DOCUMENT ID: [id number] VIKTOR RODRIGUEZ MD at 1656 CC: [id number] DICTATION DATE: 03/14/17 1344 YARD SPECIALIST: 03/14/17 1507 DIS IN 03/14/[address] [address]
== END 2017-03-14 18:52 | disposition home or self-care (01) | DRG 247 ==
LOC: D.ER 12:22 → D.M2 14:40 → OBSVTIME 14:40 → D.M2 03-13 14:58
PROVIDERS: Emergency Medicine; Internal Medicine Cardiovascular Disease; Internal Medicine Interventional Cardiology; Surgery; ADMIT Family Medicine
PROC: B2151ZZ Fluoroscopy of Left Heart using Low Osmolar Contrast (ICD-10-PCS; 2017-03-13)
PROC: 4A023N7 Measurement of Cardiac Sampling and Pressure, Left Heart, Percutaneous Approach (ICD-10-PCS; 2017-03-13)
PROC: B2111ZZ Fluoroscopy of Multiple Coronary Arteries using Low Osmolar Contrast (ICD-10-PCS; principal; 2017-03-13 08:00)
PROC: 027034Z Dilation of Coronary Artery, One Artery with Drug-eluting Intraluminal Device, Percutaneous Approach (ICD-10-PCS; 2017-03-14)
DX: I21.4 Non-ST elevation (NSTEMI) myocardial infarction (principal); I25.110 Atherosclerotic heart disease of native coronary artery with unstable angina pectoris; I45.10 Unspecified right bundle-branch block; I10 Essential (primary) hypertension; E11.65 Type 2 diabetes mellitus with hyperglycemia

== ENCOUNTER 2017-03-18 08:51 | Outpatient (CLI) | payer MEDICARE ==
--- NOTE | ~2017-03-18 | HEMODYNAMI ---
PATIENT:SHANTA COLLADO MEDICAL RECORD: [id number] : 45 LOCATION:[facility] ADMISSION DATE: 03/18/17 Generatedon:03/18/201710:45 Patient name: SHANTA COLLADO Patient #: [id number] SSN: : 1945 Date of study: 03/18/2017 Page: Of Hemodynamic Procedure Report Patient Data Patient Demographics Procedure consent was obtained First Name: SHANTA Gender: Male Last Name: TOIBAS : 1945 [facility] Initial: GAYLE Age: 71 year(s) Patient #: [id number] Race: Unknown Additional ID: [id number] Contact details [address]: [address] [place] [address] State: [place] City: [place] Zip code: [address] Past Medical History Allergies: No known allergies Admission Admission Data Admission Date: 03/18/2017 Admission Time: 8:51 Lab Results Lab Result Date: 03/13/2017 Lab Result Time: 0:00 Biochemistry Name Units Result Min Max BUN mg/dl 6 -*(----)-- 7 18 Creatinine mg/dl 1.1 --(--*-)-- 0.6 1.3 Troponin l ng/ml 0.219 --(----)-* 0 0.06 CBC Name Units Result Min Max Hemoglobin g/dl 15.8 --(--*-)-- 13.5 17.5 Procedure Procedure Types Cath Procedure PCI Procedure Coronary Stent Initial Miscellaneous Procedures Moderate Sedation up to 15 minutes Procedure Description Procedure Date Procedure Date: 03/18/2017 Procedure Start Time: 10:22 Procedure End Time: 10:44 Procedure Staff Name Function Dagoberto Long MD Performing Physician Jerod Chau RN Nurse Bartolo Crooks RT Monitor Livier Woodall RT Scrub Procedure Data Cath Procedure Fluoroscopy Diagnostic fluoroscopy Total fluoroscopy Time: 5.9 time: 5.9 min min Diagnostic fluoroscopy Total fluoroscopy dose: 712 dose: 712 mGy mGy Contrast Material Contrast Material Type Amount (ml) Isovue 300 86 Entry Location Entry Primary Successful Side Size Upsize Upsize Entry Closure Succes sful Closure Location (Fr) 1 (Fr) 2 (Fr) Remarks Device Remarks Femoral Left 7 Fr Exoseal artery Short Estimated blood loss: 10 ml Procedure Complications No complications Procedure Medications Medication Administration Route Dosage 0.9% NaCl I.V. 100 ml/hr Oxygen NC 2 l/min Heparin Flush Bag added to field 2 bags (1000units/500ml NS) Lidocaine 2% added to field 20 Versed I.V. 1 mg Fentanyl I.V. 50 mcg Versed I.V. 1 mg Heparin Bolus I.V. 4000 units Hemodynamics Rest HGB: 15.8 (g/dl) Heart Rate: 59 (bpm) Snapshots Pre Cath Intra NCS Post Cath Vital Signs Time Heart Resp SPO2 etCO2 PS2jxmi NIBP Rhythm Pain Sedation Rate (ipm) (%) (mmHg) (mmHg) (mmHg) Status Level (bpm) 10:12:31 58 15 95 0 0 125/72(90) NSR 0 (11) 10(A) , No pain 10:17:12 56 19 96 0 0 119/69(98) NSR 0 (11) 10(A) , No pain 10:21:52 58 14 96 0 0 105/59(82) NSR 0 (11) 10(A) , No pain 10:26:29 55 14 95 0 0 104/55(71) NSR 0 (11) 9(A) , No pain 10:31:07 56 14 95 0 0 96/48(77) NSR 0 (11) 9(A) , No pain 10:35:42 56 14 95 0 0 101/50(65) NSR 0 (11) 9(A) , No pain 10:40:18 55 10 96 0 0 96/51(72) NSR 0 (11) 9(A) , No pain Medications Time Medication Route Dose Verified Delivered Reason Notes Effectiveness by by 10:11:58 0.9% NaCl I.V. 100 Jerod Jerod Per physician ml/hr Isac Chau RN RN 10:12:09 Oxygen NC 2 Jerod Jerod Per physician l/min Isac Chau RN RN 10:12:26 Heparin Flush added 2 Jerod Jerod used for Bag to bags Lorigan Lorigan procedure (1000units/500ml field RN RN NS) 10:12:39 Lidocaine 2% added 20ml Jerod Jerod for local to vial Isac Chau anesthetic RN RN 10:18:30 Versed I.V. 1 mg Jerod Jerod for sedation Isac Chau RN RN 10:18:43 Fentanyl I.V. 50 Jerod Jerod for sedation mcg Isac Chau RN RN 10:21:58 Versed I.V. 1 mg Jerod Jerod for sedation Isac Chau RN RN 10:26:40 Heparin Bolus I.V. 4000 Jerod Jerod for units Isac Chau anticoagulation RN french lecturer Log Time Note 9:50:52 Jerod Chau RN sent for patient. Start room use. 9:56:54 Time tracking: Regular hours 9:56:58 Plan of Care:Hemodynamics will remain stable., Cardiac rhythm will remain stable., Comfort level will be maintained., Respiratory function will remain adequate., Patient/ family verbilizes understanding of procedure., Procedure tolerated without complication., Recovers from procedure without complications.. 10:04:38 Patient received from Pre/Post Procedure Room to [facility] 1 Alert and oriented. Tansferred to table in Supine position. 10:04:40 Warm blankets applied, and renée hugger turned on for patient comfort. 10:04:41 Correct patient and procedure confirmed by team. 10:04:43 Signed procedure consent form obtained from patient. 10:04:43 ECG and BP/O2 sat monitors applied to patient. 10:11:41 Vital chart was started 10:11:58 0.9% NaCl 100 ml/hr I.V. was administered by Jerod Chau RN; Per physician; 10:12:09 Oxygen 2 l/min NC was administered by Jerod Chau RN; Per physician; 10:12:26 Heparin Flush Bag (1000units/500ml NS) 2 bags added to field was administered by Jerod Chau RN; used for procedure; 10:12:39 Lidocaine 2% 20ml vial added to field was administered by Jerod Chua RN; for local anesthetic; 10:16:48 Baseline sample Acquired. 10:16:53 Rhythm: sinus rhythm 10:16:55 Full Disclosure recording started 10:17:00 H&P Date Dictated: 03/18/2017 New H&P dictated by physician.. 10:17:01 Pre-procedure instructions explained to patient. 10:17:01 Pre-op teaching completed and patient verbalized understanding. 10:17:04 Family in patients room. 10:17:06 Patient NPO since Midnight. 10:17:07 Is the patient allergic to Iodine/contrast media? No. 10:17:09 Is patient on blood thinner?Yes 10:17:12 ACC The patient was administered the following blood thiners within the last 24 hours: ACCPlavix 10:17:14 Patient diabetic? Yes. 10:17:15 If diabetic: On Metformin? Yes 10:17:18 If on Metformin: Last Dose? 03/16/2017 10:17:20 Previous problem with sedation/anesthesia? No ? 10:17:22 Snore? No 10:17:23 Sleep apnea? No 10:17:24 Deviated septum? No 10:17:25 Opens mouth fully? Yes 10:17:26 Sticks out tongue? Yes 10:17:28 Airway obstruction? No ? 10:17:30 Dentures? No ? 10:17:33 Pre procedure: left dorsailis pedis pulse 1+ Palpable, but thready & weak; easily obliterated 10:17:44 Patient pain scale 0/10 ?. 10:17:50 IV patent on arrival in left forearm with 0.9% NaCl at [facility]. 10:17:52 Lab results completed and on chart. 10:17:54 Left groin area was prepped with chlora-prep and draped in sterile fashion 10:17:55 Alarms reviewed by R. N. 10:17:56 Sharps counted by scrub and verified by R.N. 10:17:57 --------ALL STOP TIME OUT------ 10:17:57 Final Timeout: patient, procedure, and site verified with staff and physician. All members of the team are in agreement. 10:18:00 Left groin site verified by team. 10:18:03 Physical assessment completed. ASA score P 2 - A patient with mild systemic disease as per Dagoberto Long MD. 10:18:06 Sedation plan: IV Moderate Sedation Versed, Fentanyl 10:18:30 Versed 1 mg I.V. was administered by Jerod Chau RN; for sedation; 10:18:43 Fentanyl 50 mcg I.V. was administered by Jerod Chau RN; for sedation; 10:20:16 Use device set Femoral PCI 10:20:17 Tegaderm 4 x 4 opened to sterile field. 10:20:19 Acist Manifold opened to sterile field. 10:20:20 Acist Syringe opened to sterile field. 10:20:20 Acist Hand Control opened to sterile field. 10:20:21 Bag Decanter opened to sterile field. 10:20:21 Medline Cath Pack opened to sterile field. 10:20:22 St Tom 260cm J .035 wire opened to sterile field. 10:20:22 [place]ron BasixCompak Inflation Kit opened to sterile field. 10:20:40 Chi Fielder XT J 300cm 0.014 guide wire opened to sterile field. 10:20:40 Terumo 7Fr Embarrass Sheath opened to sterile field. 10:20:41 Medtronic Launcher 7Fr EBU 3.5 guide catheter opened to sterile field. 10:21:58 Versed 1 mg I.V. was administered by Jerod Chau RN; for sedation; 10:22:51 Procedure started. 10:22:55 Local anesthetic to left femerol artery with Lidocaine 2% by Dagoberto Long MD.INITIAL ACCESS ONLY 10:23:06 A 7 Fr Short sheath was inserted into the Left Femoral artery 10:23:27 7 Fr EBU 3.5 guide catheter was inserted over the wire 10:23:45 Guide Catheter removed. pressure damping. 10:23:47 Medtronic Launcher 7Fr EBU 3.5 SH guide catheter opened to sterile field. 10:23:56 7 Fr EBU 3.5 SH guide catheter was inserted over the wire 10:25:34 Bora wire advanced. 10:26:40 Heparin Bolus 4000 units I.V. was administered by Jerod Chau RN; for anticoagulation; 10:27:16 Wire advanced across lesion. 10:27:26 Inflation number: 1 A [place] Sci Beckham 1.5 X 15 balloon was prepped and advanced across the 1st Ob Kalpana, then inflated to 21 JEAN CARLOS for 0:10 (min:sec). 10:27:41 Multiple inflations made at 17 Atms. 10:28:25 Balloon advanced, Bora exchanged for Choice PT XS. 10:28:35 [place] Sci Choice PT Extra Support J 300cm .014 gu opened to sterile field. 10:29:32 Balloon removed over the wire. 10:31:53 Inflation number: 2 A [place] Sci Beckham 2.0 X 30 balloon was prepped and advanced across the 1st Ob Kalpana, then inflated to 17 JEAN CARLOS for 0:10 (min:sec). 10:32:20 Multiple inflations made at 19 Atms. 10:32:32 Balloon removed over the wire. 10:34:34 Inflation Number: 3 A Mauricio OTW 2.25 x 34 stent was prepped and advanced across the 1st Ob Kalpana. The stent was deployed at 13 JEAN CARLOS for 0:10 (min:sec). 10:36:05 Stent catheter was removed intact over wire. 10:36:06 Wire removed. 10:36:07 Guide catheter removed. 10:36:28 Cordis 7Fr Exoseal opened to sterile field. 10:36:44 Sheath removed intact; hemostasis achieved with Exoseal to the Left Femoral artery. 10:36:46 Procedure ended.(Physican Out) 10:37:12 Fluoroscopy time 05.90 minutes. 10:39:04 Fluoroscopy dose: 712 mGy 10:39:04 Flurop Dose total: 712 10:39:07 Contrast amount:Isovue 300 86ml. 10:39:09 Sharps counted by scrub and verified by R.N. 10:39:10 Insertion/operative site no bleeding no hematoma. 10:39:13 Post-op/insertion site Left Femoral artery dressed using a 4 x 4 and Tegaderm. 10:39:14 Post Procedure Pulses reassessed and unchanged 10:39:16 Post-procedure physical assessment completed. ASA score P 2 - A patient with mild systemic disease as per Dagoberto Long MD. 10:39:19 Post procedure rhythm: unchanged. 10:39:23 Estimated blood loss: 10 ml 10:39:25 Post procedure instruction explained to patient.Patient verbalizes understanding. 10:39:26 Patient needs reinforcement of post procedure teaching. 10:39:40 Procedure Complication : No complications 10:41:18 Procedure and supply charges have been captured, reviewed, submitted and are correct. 10:44:20 Vital chart was stopped 10:44:21 See physician's report for complete and final results. 10:44:30 Report given to Pre/Post Procedure Room. 10:44:33 Patient transfered to Pre/Post Procedure Room with Stretcher. 10:44:35 Procedure ended. 10:44:35 Full Disclosure recording stopped 10:44:38 End room use (Document Last) Intervention Summary Intervention Notes Time ActionType Lesion and Equipment Action# Pressure Duration Attributes Used 10:27:26 Inflate 1st Ob Kalpana [place] 1 21 00:10 balloon Sci Beckham 1.5 X 15 balloon 10:31:53 Inflate 1st Ob Kalpana [place] 2 17 00:10 balloon Sci Beckham 2.0 X 30 balloon 10:34:34 Place stent 1st Ob Kalpana [place] OTW 3 13 00:10 2.25 x 34 stent Device Usage Item Name Manufacture Quantity Catalog Number Hospital Part Current Mini mal Lot# / Charge Number Stock Stock Serial# Code Tegaderm 4 1 [id number] [id number] 523200 5 x 4 Acist Acist 1 18229 430376 385688 416039 5 Manifold Medical Systems Inc Acist Acist 1 34888 922078 126446 561622 20 Syringe Medical Systems Inc Acist Hand Acist 1 27326 666535 674034 209321 5 Control Medical Systems Inc Bag Microtek 1 2002S 078620 65807 677558 5 CardioGenics Inc. Medline Cardinal 1 [id number] 971167 41774 372841 [address] Adviously Inc[address] Tom 1 874397 322461 054505 594316 30 260cm J .035 wire Merit Merit 1 JE9516 677778 896924 765308 15 BasixCompak Medical Inflation Kit Chi Chi 1 [id number] 870937 439479 345421 5 Fielder XT Vascular J 300cm 0.014 guide wire Terumo 7Fr Terumo 1 [id number] 721467 047353 492314 5 Embarrass Sheath Medtronic Medtronic 1 [id number] 047654 532110 776100 0 Launcher 7Fr EBU 3.5 guide catheter Medtronic Medtronic 1 [id number] 421400 786272 118832 0 Launcher 7Fr EBU 3.5 SH guide catheter [place] Sci [place] 1 [id number] 298965 846498 973154 1 [id number] Palringo Scientific 1.5 X 15 balloon [place] Sci [place] 1 [id number] 466719 5 Choice PT Scientific Extra Support J 300cm .014 gu [place] Sci [place] 1 [id number] 927301 343235 305396 1 [id number] Scrip Products 2.0 X 30 balloon Mauricio OTW Medtronic 1 [id number] 772469 94658 917553 5 [id number] 2.25 x 34 stent Cordis 7Fr Cardinal 1 EX700 050045 893637 034775 5 Exoseal Health Signature Audit [place] Stage Time Signature Unsigned Intra-Procedure 03/18/2017 Bartolo Crooks 10:44:58 AM RT(R) Signatures Monitor : Bartolo Crooks RT Signature : Date : Time : [place] [id number] [place] [address]
[~2017-03-18 08:51] MED LIST changes: +ASPIRIN81 MG PO; +PLAVIX75 MG PO
[2017-03-18 09:10] VITALS: BP 135/67; BMI 24.4
[2017-03-18 09:25] LABS: BASOPHILS 1.1 % (0-2); EOSINOPHILS 7.5 % (0-7); HEMOGLOBIN 15.9 g/dL (13.5-17.5); IMMATURE GRANULOCYTES 0.2 % (0-5); LYMPHOCYTES 21.2 % (15-50); MCH 32.1 pg (26.0-34.0); MCHC 34.6 g/dL (31.0-37.0); MCV 92.9 fL (80.0-100.0); MEAN PLATELET VOLUME 9.2 fL (7.4-10.4); MONOCYTES 12.2 % (2-11); NEUTROPHILS 57.8 % (40-80); PLATELET COUNT 159 10x3/uL (130-400); RBC 4.95 10x6/uL (4.20-6.10); RDW 12.1 % (11.5-14.5); WBC 5.6 10x3/uL (4.8-10.8)
[2017-03-18 09:36] LABS: CALC OSMOLALITY 270 mosm/kg (275-300); CALCIUM 8.7 mg/dL (8.5-10.1); CHLORIDE - SERUM 101 mmol/L (98-107); GLUCOSE 96 mg/dL (74-106); POTASSIUM - SERUM 3.8 mmol/L (3.5-5.1); SODIUM 137 mmol/L (136-145); UREA NITROGEN 5 mg/dL (7-18); eGFR NON AFRICAN AMERICAN 78 mL/min (90-120)
--- NOTE | 2017-03-18 11:05 | NUR ---
2L NC, NO RESP DISTRESS NOTED. LEFT GROIN 7F EXOSEAL CDI, NO BLEEDING OR HEMATOMA NOTED. NO C/O PAIN OR NAUSEA AT THIS TIME. VSS. CALL LIGHT WITHIN REACH.
--- NOTE | 2017-03-18 11:35 | NUR ---
RESTING QUIETLY WITH EYES CLOSED. LEFT GROIN 7F EXOSEAL CDI, NO BLEEDING OR HEMATOMA NOTED. 2L NC, NO RESP DISTRESS NOTED. NO C/O NAUSEA OR PAIN AT THIS TIME. WILL CONTINUE TO MONITOR.
--- NOTE | 2017-03-18 11:50 | NUR ---
RESTING QUIETLY WITH EYES CLOSED. 2L NC, NO RESP DISTRESS NOTED. LEFT GROIN 7F EXOSEAL CDI, NO BLEEDING NOTED. NO C/O AT THIS TIME. VSS. WILL CONTINUE TO MONITOR.
--- NOTE | 2017-03-18 12:20 | NUR ---
2L NC, NO RESP DISTRESS. LEFT GROIN 7F EXOSEAL CDI, NO BLEEDING NOTED. DENIES ANY PAIN OR NAUSEA AT THIS TIME. FAMILY AT BEDSIDE, CALL LIGHT WITHIN REACH.
--- NOTE | 2017-03-18 13:52 | NUR ---
HOB ELEVATED 30 DEGREES. LEFT GROIN 5F EXOSEAL CDI, NO BLEEDING OR HEMATOMA NOTED. SANDWICH TRAY GIVEN, NO C/O NAUSEA. VSS.
--- NOTE | 2017-03-18 14:10 | NUR ---
LEFT FA PIV D/C'D WITH CATHTER INTACT, BAND AID TO SITE. UP TO BEDSIDE TO GET DRESSED.
--- NOTE | 2017-03-18 14:20 | NUR ---
DISCHARGE INSTRUCTIONS GIVEN, VERBALIZED UNDERSTANDING.
--- NOTE | 2017-03-18 14:30 | NUR ---
TAKEN OUT VIA WHEELCHAIR BY CATH LOANS OFFICER. LEFT FACILITY WITH FAMILY MEMBER AND ALL PERSONAL BELONGINGS.
--- NOTE | 2017-04-04 16:56 | OP ---
PATIENT NAME: SHANTA COLLADO MEDICAL RECORD: [id number] :45 LOCATION:D.CAT ADMISSION DATE: SURGEON: VIKTOR RODRIGUEZ MD DATE OF OPERATION: 03/18/2017 PROCEDURES: 1. PTCA and stent of left circumflex. 2. Selective coronary angiography. INDICATION: Angina and coronary artery disease. PROCEDURE IN DETAIL: After informed consent was obtained and after a detailed explanation of the risks, benefits as well as alternative therapies, the patient elected to proceed with angiogram and angioplasty. The left femoral area was prepped and draped in normal sterile fashion. Left femoral artery was cannulated via modified Seldinger technique with placement of 7-Slovak sheath. All catheters exchanged through this sheath. FINDINGS: The left circumflex has a chronic total occlusion of the first obtuse marginal. This is crossed with a Fielder wire, 1.5 balloon, 2.0 balloon, and stenting with a 2.25 x 34 mm Mauricio stent. Result was 0% residual stenosis. OVERALL IMPRESSION: Successful PTCA and stent of the left circumflex going from 100% chronic total occlusion to 0% residual stenosis. TRANSINT:[id number] Voice Confirmation ID: [id number] DOCUMENT ID: [id number] VIKTOR RODRIGUEZ MD at 1656 CC: [id number] DICTATION DATE: 03/18/17 1040 GEOTHERMAL FIELD TECHNICIAN: 03/18/17 1127 DEP CLI 03/18/17 [place] [id number] [place] [id number]
--- NOTE | 2017-04-04 16:56 | HP ---
PATIENT: SHANTA RINCON MEDICAL RECORD: [id number] ACCOUNT: [id number] LOCATION:[facility] : 45 ADMISSION DATE: 03/18/17 HISTORY AND PHYSICAL EXAMINATION ADMITTING DIAGNOSES: 1. Angina. 2. Coronary artery disease. 3. Percutaneous transluminal coronary angioplasty stent of the right coronary artery with concomitant disease of the left circumflex, total occlusion of the left anterior descending. 4. Hypertension. 5. Hyperlipidemia. HISTORY OF PRESENT ILLNESS: Mr. Rincon presents with unstable angina, found to have 3-vessel coronary artery disease, total occlusion of the LAD is well collateralized, PTCA stent of the RCA and left circumflex. He did not want bypass surgery. He underwent successful PTCA stent of the RCA, now brought back for PTCA stent of the left circumflex. PHYSICAL EXAMINATION: GENERAL APPEARANCE: Well-nourished, well-developed, appears stated age. Level of distress, comfortable. PSYCHIATRIC: Mental status, alert, normal affect. Orientation, oriented to time, place and person. EYES: Lids and conjunctiva, noninjected. No discharge, no pallor. ENT: Lips, teeth, gums, normal dentition. Oropharynx, no cyanosis, no pallor. NECK: Carotid arteries, bilateral normal upstroke, no bruits, no thrills. JUGULAR VEINS: No jugular venous pressure or distention. CERVICAL LYMPH NODES: Nontender, nonenlarged. THYROID: Not enlarged. Nontender. No nodules. LUNGS: Respiratory effort, unlabored. CHEST: Normal curvature. No thoracic deformity. No chest wall tenderness. Percussion, resonant. Auscultation, clear. No wheezes, no rales, no rhonchi. CARDIOVASCULAR: Precordial exam, nondisplaced. No heaves or pericardial thrills. Rate and rhythm, regular. Heart sounds, normal S1, normal S2. No S3, no gallop, no rub. Systolic murmur, not heard. Diastolic murmur, not heard. EXTREMITIES: No cyanosis, no edema. Peripheral pulses, full and equal in all extremities, except as noted. No bruits appreciated. ABDOMEN: Soft, nondistended. Normal aorta. No bruit. Nontender. No masses. Liver, nontender, no hepatomegaly. Spleen, nontender, no splenomegaly. MUSCULOSKELETAL: No joint tenderness. No joint swelling. No erythema. NEUROLOGICAL: Normal gait, normal strength, normal tone. SKIN: Warm and dry. REVIEW OF SYSTEMS: The patient reports easy bruising but reports no swollen glands. The patient reports no fever, no night sweats, no significant weight gain, no significant weight loss. No significant exercise tolerance. The patient reports no dry eyes, no irritation, no vision change. Patient reports no difficulty hearing and no ear pain. Patient reports no frequent nose bleeds or nose and sinus problems. Patient reports on arm pain on exertion. No shortness of breath while lying down. No history of heart murmur. Patient reports no cough, no wheezing or coughing up blood. Patient reports no abdominal pain, no vomiting. Normal appetite. No diarrhea and not vomiting blood. No nausea and no constipation. Patient reports no incontinence. No HISTORY AND PHYSICAL [id number] SHANTA RINCON difficulty urinating. No hematuria. No increased frequency. Patient reports no muscle aches. No weakness, no arthralgias, no back pain. No swelling of the extremities. Patient reports no abnormal mole, no jaundice, no rashes. Reports no loss of consciousness. No weakness and no numbness. No seizures, dizziness, or headaches. The patient reports no depression, no sleep disturbance, feeling safe in a relationship and no alcohol abuse. Patient reports on fatigue. Reports no runny nose or sinus pressure. No itching, no hives, and no frequent sneezing. OVERALL IMPRESSION: Anginal symptomatology with significant disease of the circumflex. We will proceed with percutaneous transluminal coronary angioplasty stent of the circumflex. TRANSINT:[id number] Voice Confirmation ID: [id number] DOCUMENT ID: [id number] VIKTOR RODRIGUEZ MD at 1656 CC: [id number] DICTATION DATE: 03/18/17899 HOSPITAL SCIENTIST: 03/18/17 0933 DEP CLI 03/18/17 [place] [id number] [place] [id number]
== END 2017-03-18 14:30 | disposition home or self-care (01) ==
LOC: D.CATH 08:51
PROVIDERS: Internal Medicine Interventional Cardiology
DX: I25.119 Atherosclerotic heart disease of native coronary artery with unspecified angina pectoris (principal); I10 Essential (primary) hypertension; E78.5 Hyperlipidemia, unspecified; Z01.812 Encounter for preprocedural laboratory examination

== ENCOUNTER 2020-01-15 19:28 | Emergency (ER) | payer OTHER ==
[~2020-01-15] VITALS: Ht 177.8 cm; Wt 72.7 kg
[2020-01-15 19:35] VITALS: BP 162/72; Ht 177.8 cm; Wt 72.7 kg
[2020-01-15 19:54] LABS: BASOPHILS 0.6 % (0-2); EOSINOPHILS 6.7 % (0-7); HEMATOCRIT 39.7 % (42.0-54.0); HEMOGLOBIN 13.1 g/dL (13.5-17.5); IMMATURE GRANULOCYTES 0.4 % (0-5); LYMPHOCYTES 22.5 % (15-50); MCH 30.3 pg (26.0-34.0); MCV 91.9 fL (80.0-100.0); MONOCYTES 13.6 % (2-11); NEUTROPHILS 56.2 % (40-80); PLATELET COUNT 185 10x3/uL (130-400); RBC 4.32 10x6/uL (4.20-6.10); RDW 12.8 % (11.5-14.5); WBC 6.9 10x3/uL (4.8-10.8)
[2020-01-15 20:03] LABS: BILIRUBIN NEGATIVE (NEGATIVE); GLUCOSE NEGATIVE (NEGATIVE); KETONE NEGATIVE (NEGATIVE); NITRITE NEGATIVE (NEGATIVE); UROBILINOGEN NORMAL (NORMAL)
[2020-01-15 20:04] LABS: ANION GAP 8.2 mmol/L (8-16); CALCIUM 9.5 mg/dL (8.5-10.1); CARBON DIOXIDE 32.1 mmol/L (21.0-32.0); CREATININE - SERUM 1.5 mg/dL (0.6-1.3); POTASSIUM - SERUM 4.3 mmol/L (3.5-5.1)
[2020-01-15 20:24] LABS: ALBUMIN 3.9 g/dL (3.4-5.0); BILIRUBIN - TOTAL 0.5 mg/dL (0.2-1.3); PROTEIN - SERUM 7.3 g/dL (6.4-8.2)
[2020-01-15 20:28] LABS: TROPONIN-I 0.294 ng/mL (0.000-0.060)
== END 2020-01-15 21:19 | disposition left against medical advice (07) ==
LOC: D.ER 19:28
PROVIDERS: Family Medicine
DX: S20.219A Contusion of unspecified front wall of thorax, initial encounter (principal); S80.00XA Contusion of unspecified knee, initial encounter; V89.2XXA Person injured in unspecified motor-vehicle accident, traffic, initial encounter; Y93.9 Activity, unspecified; Y92.9 Unspecified place or not applicable; R79.89 Other specified abnormal findings of blood chemistry; E11.9 Type 2 diabetes mellitus without complications; Z79.4 Long term (current) use of insulin; I10 Essential (primary) hypertension

== ENCOUNTER 2020-01-17 13:28 | Emergency (ER) | payer MEDICARE ==
[~2020-01-17] VITALS: Ht 177.8 cm; Wt 73.6 kg
[2020-01-17 13:39] VITALS: BP 146/75; Ht 177.8 cm; Wt 73.6 kg
[2020-01-17] MEDS ORDERED: ASPIRIN81 MG PO (13:53)
[2020-01-17] MEDS ORDERED: HYDROCODON-ACE1 EAC7 PO (16:00)
[2020-01-17] MEDS ORDERED: CYCLOBENZAPRINE10 MG PO (16:00)
== END 2020-01-17 16:23 | disposition home or self-care (01) ==
LOC: D.ER 13:28
DX: S16.1XXD Strain of muscle, fascia and tendon at neck level, subsequent encounter (principal); V89.2XXD Person injured in unspecified motor-vehicle accident, traffic, subsequent encounter; E11.9 Type 2 diabetes mellitus without complications; I10 Essential (primary) hypertension; Z79.4 Long term (current) use of insulin; M54.2 Cervicalgia